=== PATIENT | male | born 1960 | race Caucasian/White ===

== ENCOUNTER 2020-10-13 06:12 | Emergency (ER) | payer OTHER ==
[~2020-10-13] VITALS: Ht 180.3 cm; Wt 95.3 kg
[2020-10-13] MEDS ORDERED: ZANAFLEX4 MG PO (08:16)
[2020-10-13] MEDS ORDERED: NORCO7.5 PO (08:16)
[2020-10-13 08:26] VITALS: BP 158/69
== END 2020-10-13 08:26 | disposition home or self-care (01) ==
LOC: ER 06:12
DX: M54.5 Low back pain (principal)